=== PATIENT | female | born 1955 | race Caucasian/White ===

== ENCOUNTER 2017-11-23 13:16 | Emergency (ER) | payer MEDICARE ==
[~2017-11-23] VITALS: Ht 167.6 cm; Wt 59.4 kg
--- NOTE | 2017-11-23 13:33 | NUR ---
BBRA 99 FROM PMD OFFICE: SLURRED SPEECH AND GENERALIZED BODY STIFFNESS DURING MD VISIT. PATIENT RECEIVED AAO4. APPEARS IN NO APPARENT DISTRESS. STILL NOTED WITH SLURRED SPEECH AND BUE STIFFNESS. MD SHAFFER AT BEDSIDE
--- NOTE | 2017-11-23 13:35 | NUR ---
PATIENT ABLE TO MOVE ALL EXTREMITIES NOW, NO SLURRED SPEECH NOTED
[2017-11-23 13:54] LABS: BASOPHILS % (AUTO) 0.5 % (0.0-2.0); EOSINOPHILS # (AUTO) 0.3 /CMM (0.0-0.7); EOSINOPHILS % (AUTO) 7.1 % (0.0-6.0); HEMATOCRIT 37 % (33-45); LYMPHOCYTES # (AUTO) 1.4 /CMM (0.8-4.8); LYMPHOCYTES % (AUTO) 31.8 % (20.0-44.0); MEAN CORPUSCULAR HEMOGLOBIN 32 PG (26.0-33.0); MEAN CORPUSCULAR HGB CONC 35 g/dl (31.0-36.0); MEAN CORPUSCULAR VOLUME 90 fL (82-100); MONOCYTES # (AUTO) 0.4 /CMM (0.1-1.30); MONOCYTES % (AUTO) 9.9 % (2.0-12.0); NEUTROPHILS # (AUTO) 2.2 /CMM (1.8-8.9); NEUTROPHILS % (AUTO) 50.7 % (43.0-81.0); PLATELET COUNT (AUTO) 189 /CMM (150-450); RDW COEFFICIENT OF VARIATION 11.3 (11.5-15.0); RED BLOOD CELL COUNT(AUTO) 4.12 MIL/uL (4.0-5.2); WHITE BLOOD COUNT (AUTO) 4.3 K/uL (4.3-11.0)
[2017-11-23] MEDS ORDERED: IV NS 0.9% 500 ML BAG IV ONE (14:00)
[2017-11-23 14:06] LABS: CALCIUM, SERUM 9.3 mg/dL (8.5-10.1); CREATININE 0.7 mg/dL (0.6-1.3); POTASSIUM 4.1 mmol/L (3.5-5.1)
[2017-11-23 14:12] LABS: ALBUMIN 3.9 g/dL (3.4-5.0); BILIRUBIN,TOTAL 0.2 mg/dL (0.2-1.0); TOTAL PROTEIN, SERUM 7.6 g/dL (6.4-8.2)
[2017-11-23 14:21] LABS: THYROID STIMULATING HORMONE 2.473 uIU/mL (0.358-3.74)
--- NOTE | 2017-11-23 15:14 | NUR ---
PT WAS TAKEN TO CT
--- NOTE | 2017-11-23 17:25 | NUR ---
CALLED [facility] FOR PSYCH EVAL, ETA WITHIN THE HOUR
[2017-11-23 18:52] VITALS: BP 124/80
--- NOTE | 2017-11-23 18:52 | NUR ---
Note tolu in ED - 11/23/17 at 1903 by BAKARI Patient discharged to home in stable condition. Written and verbal after care instructions given. Patient verbalizes understanding of instruction.IV removed. Catheter intact and site benign. Pressure and 4x4 applied to site. No bleeding noted.
--- NOTE | 2017-11-23 19:03 | NUR ---
Patient discharged to home in stable condition. Written and verbal after care instructions given. Patient verbalizes understanding of instruction.IV removed. Catheter intact and site benign. Pressure and 4x4 applied to site. No bleeding noted.
== END 2017-11-23 19:06 | disposition home or self-care (01) ==
LOC: ER 13:19
DX: M62.838 Other muscle spasm (principal); F41.9 Anxiety disorder, unspecified; F32.9 Major depressive disorder, single episode, unspecified; I50.9 Heart failure, unspecified; M81.0 Age-related osteoporosis without current pathological fracture; Z88.0 Allergy status to penicillin; Z88.5 Allergy status to narcotic agent; Z88.8 Allergy status to other drugs, medicaments and biological substances; Z88.1 Allergy status to other antibiotic agents
CPT/HCPCS: 36415; 70450; 80048; 80076; 80305; 82550; 84443; 85025; 93005; 99285; A4606; J7040; Z7610